=== PATIENT | female | born 1950 | race Caucasian/White ===

== ENCOUNTER 2022-12-17 09:07 | Emergency (ER) | payer MEDICAID ==
[~2022-12-17] VITALS: Ht 152.4 cm; Wt 68.2 kg
[~2022-12-17 09:07] MED LIST: NITR50CA45 PO
[2022-12-17 09:13] VITALS: BP 145/86
== END 2022-12-17 11:59 | disposition left against medical advice (07) ==
LOC: EMS 09:07
DX: J02.9 Acute pharyngitis, unspecified (principal); Z53.21 Procedure and treatment not carried out due to patient leaving prior to being seen by health care provider
CPT/HCPCS: 99281; Z7502